=== PATIENT | male | born 1960 | race Caucasian/White ===

== ENCOUNTER 2023-05-24 09:03 | Outpatient (CLI) | payer BC, SELFPAY | END 2023-05-24 09:04 | disposition home or self-care (01) | PROVIDERS: PCP Family Medicine; Visit Provider Family Medicine | DX: Z01.818 Encounter for other preprocedural examination (principal); E78.5 Hyperlipidemia, unspecified; Z12.5 Encounter for screening for malignant neoplasm of prostate | CPT/HCPCS: 80048; 80061; 84460; 85025; G0103 ==

== ENCOUNTER 2023-12-21 10:26 | Outpatient (CLI) | payer BC, SELFPAY ==
[2023-12-21 15:07] LABS: PCR FLU A POSITIVE PCR FLU A (Negative); PCR FLU B Negative PCR FLU B (Negative); PCR RSV Negative PCR RSV (Negative); SARS PCR* Negative SARS-CoV-2 (Negative)
== END 2023-12-21 10:27 | disposition home or self-care (01) ==
PROVIDERS: PCP Family Medicine; Visit Provider Nurse Practitioner Family
DX: J11.1 Influenza due to unidentified influenza virus with other respiratory manifestations (principal); R05.9 Cough, unspecified; Z13.228 Encounter for screening for other metabolic disorders
CPT/HCPCS: 80048; 85025; 87631

== ENCOUNTER 2024-04-29 14:09 | Outpatient (CLI) | payer BC, SELFPAY | END 2024-04-29 14:10 | disposition home or self-care (01) | PROVIDERS: PCP Family Medicine; Visit Provider Family Medicine | DX: E78.2 Mixed hyperlipidemia (principal); I87.2 Venous insufficiency (chronic) (peripheral); Z01.818 Encounter for other preprocedural examination | CPT/HCPCS: 80048; 80061; 84460; 85025 ==

== ENCOUNTER 2024-10-15 08:35 | Outpatient (CLI) | payer BC, SELFPAY ==
--- NOTE | 2024-10-15 11:30 | CRLHL7_ITS ---
For Patients: As a result of the Century Cures Act, medical imaging exams and procedure reports are released immediately into your electronic medical record. You may view this report before your referring provider. If you have questions, please contact your health care provider. INDICATION: Left leg pain and swelling COMPARISON: None. TECHNIQUE: A compression venous ultrasound exam was performed of the left lower extremity using johns-scale imaging, color Doppler and spectral Doppler analysis. FINDINGS: Sonographic imaging of the left lower extremity demonstrates normal compressibility and color Doppler venous blood flow within the common femoral vein and deep femoral vein. Within the thigh, the femoral vein is patent and compressible. At a lower level, the popliteal and posterior tibial veins also show normal compressibility and color Doppler venous blood flow. Postprocedural changes of greater saphenous vein ablation. The saphenofemoral junction is patent. Incomplete visualization of the peroneal vein due to edema. Limited imaging of the contralateral groin demonstrates a normal spectral waveform and color Doppler venous blood flow within the right common femoral vein. IMPRESSION: No deep venous thrombosis. Status post ablation of the greater saphenous vein. Subcutaneous edema. Dictated by Marvin Aguayo MD @ 10/15/2024 12:46:40 PM (Electronically Signed)
== END 2024-10-15 08:36 | disposition home or self-care (01) ==
PROVIDERS: PCP Family Medicine; Visit Provider Family Medicine
DX: M79.605 Pain in left leg (principal); M79.89 Other specified soft tissue disorders
CPT/HCPCS: 80048; 85379; 93971

== ENCOUNTER 2024-11-15 10:53 | Outpatient (CLI) | payer BC, SELFPAY | END 2024-11-15 10:54 | disposition home or self-care (01) | LOC: FBOREF 10:54 | PROVIDERS: PCP Family Medicine; Visit Provider Family Medicine | DX: M79.89 Other specified soft tissue disorders (principal) | CPT/HCPCS: 84132 ==